=== PATIENT | female | born 1955 | race Caucasian/White ===

== ENCOUNTER 2020-01-18 09:59 | Outpatient (CLI) | payer MEDICARE, SELFPAY ==
--- NOTE | ~2020-01-18 | MM_ITS ---
EXAMINATION: MM screening [facility] BI w tyson HISTORY: Screening mammogram TECHNIQUE: Craniocaudal and mediolateral oblique 3-D tomosynthesis images were obtained and synthetic 2-D images were generated. CAD analysis was submitted and interpreted. COMPARISON: 11/15/2018, 10/04/2017, 07/14/2016 BREAST PARENCHYMAL COMPOSITION: There are scattered areas of fibroglandular density. FINDINGS: There is no evidence of suspicious mass, calcification, or architectural distortion to sugg est malignancy in either breast. There has been no suspicious interval change. IMPRESSION: 1. No mammographic evidence of malignancy. 2. Recommend routine screening mammography in one year. BI-RADS Category 1: Negative Reviewed, dictated and finalized at location A. S TENDER LONG GOODS
== END 2020-01-18 10:00 | disposition home or self-care (01) ==
LOC: CHSIMG 10:02
PROVIDERS: PCP Internal Medicine; Visit Provider Student in an Organized Health Care Education/Training Program
DX: Z12.31 Encounter for screening mammogram for malignant neoplasm of breast (principal)
CPT/HCPCS: 77063; 77067

== ENCOUNTER 2020-10-07 09:39 | Outpatient (CLI) | payer MEDICARE, SELFPAY ==
--- NOTE | ~2020-10-07 | MMUS_ITS ---
EXAMINATION: MM diagnostic nir LT w tyson, US breast LT limited HISTORY: Left lateral breast pain TECHNIQUE: Additional 3-D tomosynthesis images of the left breast were performed and synthetic 2-D im ages were generated. CAD analysis was submitted and interpreted. High resolution Limited left breast ultrasound was performed. COMPARISON: Comparison to multiple prior studies sequentially, with oldest reviewed study dated 05/23. BREAST PARENCHYMAL COMPOSITION: The breasts are heterogenously dense, which may obscure small masses. FINDINGS: MAMMOGRAPHIC FINDINGS: There are no new masses, calcifications or architectural distortion in the left breast to suggest mal ignancy. ULTRASOUND: Limited left breast ultrasound: At 5:00, 2 cm from the nipple, there is an oval hypoechoic mass measu ring 3.5 mm, likely a complicated cyst. At 6:00, 4 cm from the nipple, there is an oval hypoechoic ma ss with low level internal echoes measuring 3 mm, also likely complicated cysts. IMPRESSION: 1. Probable benign left breast masses. 2. Recommend 6 month follow-up left breast ultrasound BI-RADS category 3, probably benign findings. Reviewed, dictated and finalized at location A. IMPRESSION: 1. Probable benign left breast masses. 2. Recommend 6 month follow-up left breast ultrasound BI-RADS category 3, probably benign findings.
== END 2020-10-07 09:40 | disposition home or self-care (01) ==
LOC: CHSIMG 09:42
PROVIDERS: PCP Internal Medicine; Visit Provider Student in an Organized Health Care Education/Training Program
DX: N64.4 Mastodynia (principal)
CPT/HCPCS: 76642; 77061; 77065; G0279

== ENCOUNTER 2021-04-17 09:04 | Outpatient (CLI) | payer MEDICARE, SELFPAY ==
--- NOTE | ~2021-04-17 | MMUS_ITS ---
EXAMINATION: MM diagnostic nir BI w tyson, US breast LT limited HISTORY: Follow-up breast masses TECHNIQUE: Additional 3-D tomosynthesis images of the breasts were performed and synthetic 2-D images were generated. CAD analysis was submitted and interpreted. High resolution Limited left breast ultr asound was performed. COMPARISON: Comparison to multiple prior studies sequentially, with oldest reviewed study dated 07/24. BREAST PARENCHYMAL COMPOSITION: The breasts are heterogenously dense, which may obscure small masses FINDINGS: MAMMOGRAPHIC FINDINGS: Bilateral breast are stable. No new masses, calcifications or architectural distortion to suggest mal ignancy. ULTRASOUND: Limited left breast ultrasound: Stable oval hypoechoic 4 mm mass of the left breast at 5:00, 2 cm fro m the nipple with parallel orientation, no posterior features and no internal vascularity. Stable 4 m m hypoechoic mass at 6:00, 4 cm from the nipple with similar characteristics. IMPRESSION: 1. Stable likely benign left breast masses by ultrasound. 2. Recommend 6 month follow-up Limited left breast ultrasound BI-RADS category 3, probably benign findings. Reviewed, dictated and finalized at location A. ER HELPER IMPRESSION: 1. Stable likely benign left breast masses by ultrasound. 2. Recommend 6 month follow-up Limited left breast ultrasound BI-RADS category 3, probably benign findings.
--- NOTE | ~2021-04-17 | DEXA_ITS ---
Bone Density Report Name: ABDIAZIZ MURCIA Age: 65 Sex: Female Ethnicity: White Date of : 1955 Indication: postmenopausal; screening for osteoporosis; parental hip fracture; height loss; hysterectomy; Referring Provider: Isabel Mendes Study: Bone densitometry was performed. Exam Date: April 17, 2021 Accession number: [id number] Bone Density: Region BMD T-score Z-score Classification AP Spine(L1-L4) 0.816 -2.1 -0.2 Osteopenia Femoral Neck (Left) 0.686 -1.5 0.1 Osteopenia Total Hip (Left) 0.834 -0.9 0.4 Normal Femoral Neck (Right) 0.724 -1.1 0.5 Osteopenia Total Hip (Right) 0.843 -0.8 0.5 Normal Femoral Neck Mean 0.705 -1.3 0.3 Osteopenia Total Hip Mean 0.838 -0.8 0.5 Normal World Health Organization criteria for BMD impression classify patients as: Normal (T-score at or above -1.0), Osteopenia (T-score between -1.0 and -2.5), or Osteoporosis (T-score at or below -2.5). 10-year Fracture Risk(1): Major Osteoporotic Fracture 16% Hip Fracture 1.2% Reported Risk Factors: [place] (), Neck BMD=0.686, BMI=27.8, parental fracture (1) FRAX(R) Version 3.08. Fracture probability calculated for an untreated patient. Fracture probability may be lower if the patient has received treatment. Clinical Information Provided by Patient: Parent has had a hip fracture Has used the following medications: Vitamin D, Calcium Has the following medical conditions: Hysterectomy Patient maximum height was 65 Menopause Age: 55 No regular weight bearing exercise Does not regularly consume dairy products Onset of menses at age 13 Number of children 3 Impression: The patient has low bone mass, based on the Total Spine T-score. The patient has risk factors, including: parental hip fracture. Discussion: BONE DENSITY IS LOW AT ONE OR MORE SKELETAL SITES. This patient's lowest T-score is low at one or more skeletal sites. It meets the World Health Organization's (WHO) criteria for ?low bone mass? (T-score between -1.0 and -2.5). The patient's 10-year risk of fracture as calculated by FRAX is less than the threshold where pharmacological therapy is recommended by the National Osteoporosis Foundation (NOF). However, all treatment decisions require clinical judgment and consideration of individual patient factors, including patient preferences, comorbidities, previous drug use, risk factors not captured in the FRAX model (e.g., frailty, falls, vitamin D deficiency, increased bone turnover, interval significant decline in bone density) and possible under or overestimation of fracture risk by FRAX. The patient should follow a healthful lifestyle (good nutrition with adequate calcium and vitamin D, and appropriate weight-bearing exercise). Follow-Up: Consider repeating this study i
== END 2021-04-17 09:05 | disposition home or self-care (01) ==
LOC: CHSIMG 09:06
PROVIDERS: PCP Internal Medicine; Visit Provider Student in an Organized Health Care Education/Training Program
DX: Z78.0 Asymptomatic menopausal state (principal); R92.8 Other abnormal and inconclusive findings on diagnostic imaging of breast
CPT/HCPCS: 76642; 77062; 77066; 77080; G0279

== ENCOUNTER 2021-07-09 13:21 | Outpatient (CLI) | payer MEDICARE, SELFPAY ==
--- NOTE | ~2021-07-09 | US_ITS ---
EXAMINATION: US thyroid DATE: 07/09/2021 13:43 INDICATION: Goiter TECHNIQUE: Multiple ultrasound images of the thyroid were obtained. COMPARISON: None. FINDINGS: The right thyroid lobe measures 4.8 x 1.1 x 1.3 cm. The left thyroid lobe measures 4.6 x 1.2 x 1.8 c m. 2.5 x 1.9 x 1.3 cm wider than tall heterogeneously isoechoic solid nodule at the inferior right t hyroid (TI-RADS 3, mildly suspicious , FNA if >=2.5 cm, annual followup is >=1.5 cm). There is an add itional 5 mm solid hypoechoic nodule with smooth and ill-defined margins at the right side of the thy roid isthmus (TI-RADS 4, moderately suspicious , FNA if >=1.5 cm, annual followup is >=1 cm). Additio nal 10 mm TI RADS 3 wider than tall solid isoechoic nodule with smooth margins and very hypoechoic pe ripheral halo in the left thyroid lobe in the inferior left thyroid. 1.1 cm TI RADS 4 vitamin tall hy poechoic solid nodule with ill-defined margins at the inferior left thyroid. IMPRESSION: 1. Multinodular goiter. Recommend ultrasound-guided biopsy of the largest 2.5 cm TI RADS 3 nodule in the right thyroid. Reviewed, dictated and finalized at location A. IMPRESSION: 1. Multinodular goiter. Recommend ultrasound-guided biopsy of the largest 2.5 c m TI RADS 3 nodule in the right thyroid.
== END 2021-07-09 13:22 | disposition home or self-care (01) ==
LOC: CHSIMG 13:22
PROVIDERS: PCP Internal Medicine; Visit Provider Internal Medicine Endocrinology, Diabetes & Metabolism
DX: E04.9 Nontoxic goiter, unspecified (principal)
CPT/HCPCS: 76536

== ENCOUNTER 2021-08-04 13:07 | Outpatient (CLI) | payer MEDICARE, SELFPAY ==
--- NOTE | ~2021-08-04 | US_ITS ---
EXAMINATION: US FNA w image guidance DATE: 08/04/2021 14:26 INDICATION: Right thyroid nodule. TECHNIQUE: The procedure and its benefits and risks were discussed with the patient. Risks specifically discusse d included bleeding. The patient verbalized understanding of the risks and agreed to proceed. The nec k was prepped and draped in the usual sterile manner. 1% lidocaine was used for local anesthesia. 6 passes were made with a 25G needle into the lesion under ultrasound guidance. There were no immedia te complications. FINDINGS: Grayscale ultrasound images demonstrate needles advanced into a 2.5 cm nodule in inferior right thyro id lobe for biopsy. IMPRESSION: 1. Ultrasound-guided fine needle aspiration of a right thyroid nodule. Reviewed, dictated and finalized at location A.
== END 2021-08-04 13:08 | disposition home or self-care (01) ==
PROVIDERS: PCP Internal Medicine; Visit Provider Nurse Practitioner
DX: E04.1 Nontoxic single thyroid nodule (principal)
CPT/HCPCS: 10005; 88173; 88305

== ENCOUNTER 2021-10-22 14:30 | Outpatient (RCR) | payer MEDICARE, SELFPAY ==
[2021-08-28 09:20] VITALS: BMI 26.0
[2021-08-28 09:25] VITALS: BMI 26.0
== END 2021-11-11 09:53 | disposition home or self-care (01) ==
LOC: ANHDMC 14:30
PROVIDERS: PCP Internal Medicine; Visit Provider Internal Medicine Endocrinology, Diabetes & Metabolism
DX: E11.65 Type 2 diabetes mellitus with hyperglycemia (principal); Z71.89 Other specified counseling; Z71.3 Dietary counseling and surveillance
CPT/HCPCS: 97802; G0108; G0109

== ENCOUNTER 2021-10-23 08:53 | Outpatient (CLI) | payer MEDICARE, SELFPAY ==
--- NOTE | ~2021-10-23 | US_ITS ---
US breast LT limited 10/23/2021 09:31 Indication: Follow-up left breast masses Procedure: High-resolution Limited ultrasound of the left breast Comparison: Ultrasound dated 04/17/2021 Findings: At 6:00, 4 cm from the nipple, there is a 4 mm cyst. At 5:00, 2 cm from the nipple, there i s a 6 mm cyst. No suspicious masses to suggest malignancy. Impression: 1: Benign cysts of the left breast. No sonographic evidence for malignancy. Routine yearly screening mammogram and regular clinical breast examination are recommended. BI-RADS CATEGORY 2 - BENIGN FINDINGS Reviewed, dictated and finalized at location A. Impression: 1: Benign cysts of the left breast. No sonographic evidence for malignancy. Routine yearly screening mammogram and regular clinical breast examination are recommended. BI-RADS CATEGORY 2 - BENIGN FINDINGS
== END 2021-10-23 08:54 | disposition home or self-care (01) ==
LOC: CHSIMG 08:55
PROVIDERS: PCP Internal Medicine; Visit Provider Student in an Organized Health Care Education/Training Program
DX: R92.8 Other abnormal and inconclusive findings on diagnostic imaging of breast (principal)
CPT/HCPCS: 76642

== ENCOUNTER 2022-01-15 14:25 | Outpatient (RCR) | payer MEDICARE, SELFPAY | END 2022-01-15 19:05 | disposition home or self-care (01) | LOC: ANHDMC 14:25 | PROVIDERS: PCP Internal Medicine; Visit Provider Internal Medicine Endocrinology, Diabetes & Metabolism | DX: E11.65 Type 2 diabetes mellitus with hyperglycemia (principal); Z71.89 Other specified counseling | CPT/HCPCS: G0109 ==

== ENCOUNTER 2022-03-23 07:22 | Outpatient (CLI) | payer MEDICARE, SELFPAY ==
--- NOTE | ~2022-03-23 | US_ITS ---
EXAMINATION: US right upper quadrant DATE: 03/23/2022 08:38 INDICATION: Jaundice. Abnormal liver function tests. TECHNIQUE: Multiple grayscale and Doppler ultrasound images of the abdomen were obtained. COMPARISON: Abdomen ultrasound 02/12/2017 FINDINGS: The visualized portions of the head and body of the pancreas are normal. There is diffuse h epatic steatosis. No liver surface nodularity. There is normal flow in main portal vein. The gallblad trupti is absent. The common duct is normal and measures 5 mm. IMPRESSION: 1. Diffuse hepatic steatosis. Reviewed, dictated and finalized at location A. R RULER
== END 2022-03-23 07:23 | disposition home or self-care (01) ==
LOC: CHSIMG 07:23
PROVIDERS: PCP Internal Medicine; Visit Provider Internal Medicine Endocrinology, Diabetes & Metabolism
DX: K76.0 Fatty (change of) liver, not elsewhere classified (principal)
CPT/HCPCS: 76705

== ENCOUNTER 2022-04-21 13:34 | Outpatient (CLI) | payer MEDICARE, SELFPAY ==
--- NOTE | ~2022-04-21 | CT_ITS ---
CT Abdomen with contrast. History: Hyperbilirubinemia. Spiral CT of the abdomen was performed prior to and following the administration of intravenous contr ast. 100 cc of Omnipaque 350 was administered intravenously without complication. Dose reduction tech nique was used on this scan by utilizing automated exposure control and iterative reconstruction tech nique. The dose-length product (DLP) was 305.10 mGy-cm. Findings: Scans through the lung bases are unremarkable. The liver, spleen, pancreas, adrenals and kidneys are within normal limits. Cholecystectomy clips are present. No evidence of aortic aneurysm. No lymphadenopathy is seen. Visualized bowel is unremarkable. No ascites. Impression: Status post cholecystectomy, otherwise unremarkable exam. Reviewed, dictated and finalized at location M. TECHNOLOGIST Impression: Status post cholecystectomy, otherwise unremarkable exam.
[2022-04-21 13:57] LABS: Estimated Glomerular Filt Rate > 60
== END 2022-04-21 13:35 | disposition home or self-care (01) ==
PROVIDERS: PCP Internal Medicine; Visit Provider Nurse Practitioner Family
DX: E80.6 Other disorders of bilirubin metabolism (principal); Z80.0 Family history of malignant neoplasm of digestive organs
CPT/HCPCS: 74160; Q9967

== ENCOUNTER 2022-11-16 07:54 | Outpatient (CLI) | payer MEDICARE, SELFPAY ==
--- NOTE | ~2022-11-16 | MM_ITS ---
EXAMINATION: MM screening nir BI w tyson HISTORY: Screening TECHNIQUE: Craniocaudal and mediolateral oblique 3-D tomosynthesis images were obtained and synthetic 2-D images were generated. CAD analysis was submitted and interpreted. COMPARISON: No prior mammogram is available for comparison at this institution. BREAST PARENCHYMAL COMPOSITION: Breast composed of scattered areas of fibroglandular density FINDINGS: There are developing asymmetries in the upper central aspect of the left breast which are o bscured by overlying fibroglandular tissue. The right breast is stable without evidence for malignanc y. IMPRESSION: 1. Developing left breast asymmetries, upper central aspect of the left breast. 2. Additional spot compression and mediolateral views with possible follow-up breast ultrasound recom mended. BI-RADS Category 0: Incomplete: Needs additional imaging evaluation. Reviewed, dictated and finalized at location A. IMPRESSION: 1. Developing left breast asymmetries, upper central aspect of the left breast. 2. Additional spot compression and mediolateral views with possible follow-up b reast ultrasound recommended. BI-RADS Category 0: Incomplete: Needs additional imaging evaluation.
== END 2022-11-16 07:55 | disposition home or self-care (01) ==
LOC: CHSIMG 07:57
PROVIDERS: PCP Internal Medicine; Visit Provider Registered Nurse
DX: Z12.31 Encounter for screening mammogram for malignant neoplasm of breast (principal); N64.89 Other specified disorders of breast
CPT/HCPCS: 77063; 77067

== ENCOUNTER 2022-11-20 08:51 | Outpatient (CLI) | payer MEDICARE, SELFPAY ==
--- NOTE | ~2022-11-20 | MMUS_ITS ---
EXAMINATION: MM diagnostic nir LT w tyson, US breast LT complete HISTORY: Follow-up left breast asymmetries TECHNIQUE: Additional 3-D tomosynthesis images of the left breast were performed and synthetic 2-D im ages were generated. CAD analysis was submitted and interpreted. High resolution complete left left b reast ultrasound was performed. COMPARISON: Comparison to multiple prior studies sequentially, with oldest reviewed study dated 07/2017. BREAST PARENCHYMAL COMPOSITION: Breast composed of scattered areas of fibroglandular density FINDINGS: MAMMOGRAPHIC FINDINGS: Left breast asymmetries are less apparent with spot compression views without significant interval ch elsie compared with prior examinations allowing for differences of technique. There are benign calcifi cations. ULTRASOUND: Complete US of all 4 quadrants of the left breast and retroareolar region was reviewed. At 12:00, 7 cm from the nipple there is a small simple cyst. At 5:00, near the nipple there is a 4.5 mm cyst with internal septation. No suspicious masses to suggest malignancy. IMPRESSION: 1. Stable left mammogram and ultrasound. No evidence for malignancy. 2. Routine yearly screening mammogram and regular clinical breast examination are recommended. BI-RADS Category 2: Benign finding(s). Reviewed, dictated and finalized at location A. IMPRESSION: 1. Stable left mammogram and ultrasound. No evidence for malignancy. 2. Routine yearly screening mammogram and regular clinical breast examination a re recommended. BI-RADS Category 2: Benign finding(s).
== END 2022-11-20 08:52 | disposition home or self-care (01) ==
LOC: CHSIMG 08:53
PROVIDERS: PCP Internal Medicine; Visit Provider Registered Nurse
DX: R92.8 Other abnormal and inconclusive findings on diagnostic imaging of breast (principal)
CPT/HCPCS: 76641; 77061; 77065; G0279

== ENCOUNTER 2023-09-21 15:05 | Outpatient (CLI) | payer MEDICARE, SELFPAY ==
--- NOTE | ~2023-09-21 | XR_ITS ---
XR hip RT min 2V Ordering provider: John Quiroga MD History: . low back radiating into RT hip X 2 months . Comparison: None. FINDINGS: BONES: No acute fracture or dislocation. Small bony fragment seen near to the greater trochanter whic h may be old fracture or soft tissue calcification. HIP JOINT SPACES: Normal. PUBIC SYMPHYSIS: Normal. SOFT TISSUES: Normal. IMPRESSION: No definite acute osseous abnormality pelvis and right hip. Reviewed, dictated and finalized at location A.
--- NOTE | ~2023-09-21 | XR_ITS ---
3 VIEWS LUMBAR SPINE Ordering provider: John Quiroga MD History: . low back radiating into RT hip X 2 months . Comparison: None. FINDINGS: VERTEBRAL BODIES:Levoscoliosis. Degenerative changes of the spine. No visible fracture or subluxatio n. DISK SPACES: Narrowing of the disc L1-L2, L3-L4 and L4-5. Facet joint disease at the level of L3-4, L 4-5 and L5-S1. SOFT TISSUES: Vascular calcifications. IMPRESSION: No acute osseous abnormality lumbar spine. Reviewed, dictated and finalized at location A.
== END 2023-09-21 15:06 | disposition home or self-care (01) ==
LOC: CHSIMG 15:07
PROVIDERS: PCP Internal Medicine; Visit Provider Internal Medicine
DX: M25.551 Pain in right hip (principal); M54.50 Low back pain, unspecified
CPT/HCPCS: 72100; 73502

== ENCOUNTER 2023-11-09 07:56 | Outpatient (CLI) | payer MEDICARE, SELFPAY ==
--- NOTE | ~2023-11-09 | US_ITS ---
Limited Abdominal Sonogram: Real-time sonographic imaging of the right upper quadrant was performed. Clinical History: Hyperbilirubinemia Findings: The liver appears echogenic, with no evidence of mass lesion or bile duct dilatation. Main portal vein demonstrates normal direction of flow. The gallbladder is absent, compatible prior diandra cystectomy.. The common bile duct measures 3 mm. The visualized pancreas, aorta, and IVC are unremar kable. Impression: Diffuse fatty infiltration of the liver. Reviewed, dictated and finalized at location M. Impression: Diffuse fatty infiltration of the liver.
== END 2023-11-09 07:57 | disposition home or self-care (01) ==
LOC: CHSIMG 07:57
PROVIDERS: PCP Internal Medicine; Visit Provider Internal Medicine Gastroenterology
DX: K76.0 Fatty (change of) liver, not elsewhere classified (principal); E80.6 Other disorders of bilirubin metabolism
CPT/HCPCS: 76705

== ENCOUNTER 2023-12-28 07:53 | Outpatient (CLI) | payer MEDICARE, SELFPAY ==
--- NOTE | ~2023-12-28 | MM_ITS ---
EXAMINATION: MM screening [facility] BI w tyson HISTORY: Screening mammogram TECHNIQUE: Craniocaudal and mediolateral oblique 3-D tomosynthesis images were obtained and synthetic 2-D images were generated. CAD analysis was submitted and interpreted. COMPARISON: 11/16/2022, 04/17/2021, 10/07/2020, 01/18/2020 BREAST PARENCHYMAL COMPOSITION:Not Dense. There are scattered areas of fibroglandular density. FINDINGS: No suspicious mass, calcification, or architectural distortion are identified in either talia ast to suggest malignancy. There has been no suspicious interval change. IMPRESSION: No mammographic evidence of malignancy. Recommend routine screening mammography in one year. BI-RADS Category 1: Negative Reviewed, dictated and finalized at location .
== END 2023-12-28 07:54 | disposition home or self-care (01) ==
LOC: CHSIMG 07:55
PROVIDERS: PCP Internal Medicine; Visit Provider Nurse Practitioner Obstetrics & Gynecology
DX: Z12.31 Encounter for screening mammogram for malignant neoplasm of breast (principal)
CPT/HCPCS: 77063; 77067

== ENCOUNTER 2024-07-06 12:21 | Outpatient (CLI) | payer MEDICARE, SELFPAY ==
--- NOTE | ~2024-07-06 | DEXA_ITS ---
Bone Density Report Name: ABDIAZIZ MURCIA Age: 68 Sex: Female Ethnicity: White Date of : 1955 Indication: osteopenia; parental hip fracture; height loss; hysterectomy; Referring Provider: ERROL CHAMBERS Study: Bone densitometry was performed. Exam Date: July 06, 2024 Accession number: [id number] Bone Density: Region BMD T-score Z-score Classification AP Spine(L1-L4) 0.831 -2.0 0.1 Osteopenia Femoral Neck (Left) 0.672 -1.6 0.2 Osteopenia Total Hip (Left) 0.805 -1.1 0.4 Osteopenia Femoral Neck (Right) 0.687 -1.5 0.3 Osteopenia Total Hip (Right) 0.779 -1.3 0.1 Osteopenia Femoral Neck Mean 0.679 -1.5 0.2 Osteopenia Total Hip Mean 0.792 -1.2 0.3 Osteopenia World Health Organization criteria for BMD impression classify patients as: Normal (T-score at or above -1.0), Osteopenia (T-score between -1.0 and -2.5), or Osteoporosis (T-score at or below -2.5). 10-year Fracture Risk(1): Major Osteoporotic Fracture 16% Hip Fracture 2.8% Reported Risk Factors: [place] (), Neck BMD=0.672, BMI=27.8, parental fracture (1) FRAX(R) Version 3.08. Fracture probability calculated for an untreated patient. Fracture probability may be lower if the patient has received treatment. Previous Exams: Region Exam Age BMD T-score BMD Change BMD Change Date g/cm2 vs Baseline vs Previous AP Spine (L1-L4) 07/06/2024 68 0.831 -2.0 0.015 (1.8%) 0.015 (1.8%) 04/17/2021 65 0.816 -2.1 Total Hip(Left) 07/06/2024 68 0.805 -1.1 -0.029 (-3.5%) -0.029 (-3.5%) 04/17/2021 65 0.834 -0.9 Total Hip(Right) 07/06/2024 68 0.779 -1.3 -0.063 (-7.5%) -0.063 (-7.5%) 04/17/2021 65 0.843 -0.8 *Denotes significance at 95% confidence level, LSC for AP Spine = 0.022 g/cm2, LSC for Total Hip = 0.027 g/cm2 Clinical Information Provided by Patient: Parent has had a hip fracture Has used the following medications: Vitamin D, Calcium Has the following medical conditions: Hysterectomy Patient maximum height was 65 Menopause Age: 55 No regular weight bearing exercise Does not regularly consume dairy products Onset of menses at age 13 Number of children 3 Impression: The patient has low bone mass, based on the Total Spine T-score. The patient has risk factors, including: parental hip fracture. The BMD for the Total Hip(Left) decreased, changing by -3.5% since the last DXA exam. The BMD for the Total Hip(Right) decreased, changing by -7.5% since the last DXA exam. Discussion: BONE DENSITY IS LOW AT ONE OR MORE SKELETAL SITES. This patient's lowest T-score is low at one or more skeletal sites. It meets the World Health Organization's (WHO) criteria for ?low bone mass? (T-score between -1.0 and -2.5). The patient's 10-year risk of fracture as calculated by FRAX is less than the threshold where pharmacological therapy is recommended by the National Osteoporosis Foundation (NOF). However, all treatment decisions require clinical judgment and consideration of individual patient factors, including patient preferences, comorbidities, previous drug use, risk factors not captured in the FRAX model (e.g., frailty, falls, vitamin D deficiency, increased bone turnover, interval significant decline in bone density) and possible under or overestimation of fracture risk by FRAX. The patient should follow a healthful lifestyle (good nutrition with adequate calcium and vitamin D, and appropriate weight-bearing exercise). Follow-Up: Consider repeating this study in 2 years to reassess this patient's status, or sooner if there is some new clinical indication. Reported by: SELENE on 07/06/2024 12:36:00 PM. Reviewed, dictated and finalized at location A.
--- OUTSIDE RECORDS SUMMARY | 2024-07-06 12:25 | XMS_ITS | Clinical Summary ---
Author Organization [facility] Address [address] [place] [id number] Care Team Providers Care Filter Tender Jelly Name Role Phone Unavailable Primary Care Provider Unavailabl e Social History Tobacco Use Types Packs/Day Years Used Date Smoking Tobacco: Never Assessed Comments Unknown Sex and Gender Information Value Date Recorded Sex Assigned at Not on file Legal Sex Female 8:09 PM CDT Gender Identity Not on file Sexual Orientation Not on file Plan of Treatment Health Maintenance Due Date Last Done Comments Colorectal Cancer Screening Colonoscopy (10 Years) 1955 Hepatitis C 1972 DTaP, Tdap and Td Vaccines ( 1 - Tdap) 1973 Mammogram Screening 1994 Pneumococcal Vaccine: 50+ Ye ars (1 of 1 - PCV) 2004 Zoster Vaccines (1 of 2) 2004 Dexa Scan (General) 10/26/2019 COVID-19 Vaccine ( - 2023-2 5 season) 2023 RSV Immunization or 60+ Years (1 - 1-dose 75+ series) 2029 Meningococcal B Vaccine Aged Out No l onger eligible based on patient's age to complete this topic Meningococcal Vaccine Aged Out No luis fernando abby eligible based on patient's age to complete this topic RSV Immunizations Under 20 Months Aged Out No longer eligible based on patient's age to complete this topic
--- OUTSIDE RECORDS SUMMARY | 2024-07-06 12:25 | XMS_ITS | Referral Summary ---
Author Organization [facility] Address [address] [place] [address] Care Team Providers Care Braille Duplicating Machine Operator Name Role Phone John Quiroga MD Primary Care Provider [phone] Allergies Active Allergy Reactions Criticality Noted Date Comments Codeine Nausea only Low Medications atorvastatin (LIPITOR) 10 mg tablet daily 09/27/2015 Active hydroCHLOROthia zide (MICROZIDE) 12.5 mg capsule daily 09/27/2015 Act joyce losartan (COZAAR) 50 mg tablet daily 09/27/2015 Active metFORMIN (GLUCOPHAGE) 500 mg tablet 2 times daily 09/27/2015 Active Jardiance 10 mg tablet Take 10 mg by mouth every morning 12/04/2019 Active glipiZIDE XL (GLUCOTROL XL) 5 mg 24 hr tablet TAKE 1 TABLET DAILY AT SUPPER 11/30/2019 Active Active Problems Problem Noted Date Diagnosed Date Biliary calculus 12/06/2015 Gastroesophageal reflux disease 09/27/2015 Difficulty in swallowing 09/27/2015 Hiatal hernia 09/27/2015 Diarrhea 09/27/2015 Social History Tobacco Use Types Packs/Day Years Used Date Smoking Tobacco: Never Alcohol Use Standard Drinks/Week Comments No 0 (1 standard drink = 0.6 oz pur e alcohol) Personal Safety Answer Date Recorded Getting School Help Needed Not on file 05/15 Comments Unknown Sex and Gender Information Value Date Recorded Sex Assigned at Not on file Legal Sex Female 3:33 AM 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 SURGEON Gender Identity Not on file Sexual Orientation Not on file Last Filed Vital Signs Vital Sign Reading Time Taken Comments Blood Pressure 116/76 02/08/2020 7:50 AM 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 SURGEON Pulse 83 02/08/2020 7:50 AM 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 SURGEON Temperature 36.1 C (97 F) 02/08/2020 7:27 AM 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 SURGEON Respiratory Rate 20 02/08/2020 7:50 AM 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 SURGEON Oxygen Saturation 94% 02/08/2020 7:50 AM 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 SURGEON Inhaled Oxygen Concentration - - Weight 72.2 kg (159 lb 3.2 oz) 01/16/2020 10:46 AM 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 SURGEON Height 165.1 cm (5' 5 ) 01/16/2020 10:46 AM 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 SURGEON Body Mass Index 26.49 01/16/2020 10:46 AM 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 SURGEON Plan of Treatment Not on file Insurance AET MEDICARE [facility] MEDIC[facility] Address: [facility] [id number] [place] [id number] Advance Directives For more information, please contact: [phone] * Full Code (Latest Code Status on File) Date Activated Date Inactivated Comments 02/08/2020 6:22 AM 02/08/2020 12:23 PM Care Teams Braille Duplicating Machine Operator Relationship Specialty Start Date End Date John Quiroga MD PCP - General 01/01/17
--- OUTSIDE RECORDS SUMMARY | 2024-07-06 12:25 | XMS_ITS | Data Portability ---
Author Organization [facility], Main Office Address [address] [place] [address] Assessment No assessment recorded. Plan of Treatment Reminders Order Date Submit Date Provider Last Modified By Organization Details Last Modified Time Details Appointments None recorded. Lab None recorded. Referral None recorded. Procedures None recorded. Surgeries None recorded. Imaging None recorded. Medication Orders Bydureon BCise 2 mg/0.85 mL subcutaneou s auto-inject or 2022 023 [id number], [address], [place], [id number], 3 11:55:10 metformin ER 500 mg tablet,exte nded release 24 hr 2022 023 [id number], [address], [place], [id number], 3 11:55:41 glipizide ER 5 mg tablet, extended release 24 hr 2022 023 [email or web address]44952, [address], [place], [id number], 3 11:55:40 Farxiga 5 mg tablet 2022 023 [email or web address]57907, [address], [place], [id number], 11:56:36 Patient TargetsNo targets recorded. Patient InstructionsNo instructions recorded. Reason for Referral None Reported. Results Created Date Observation Date Name Description Value Unit Range Abnormal Flag Note LastModifiedBy Organization Detail LastModifiedTime 07/11/19 22 07/11/2021 HEMOG LOBIN A1C hemoglobin A1C 8.4 %_of_ total _HGB <5.7 high For someo ne witho ut known diabe kings, a hemog lobin A1c value of 6.5% or great er indic ates that they may have diabe kings and this shoul d be confi rmed with a follo w-up test. For someo ne with known diabe kings, a value <7% indic ates that their diabe kings is well contr olled and a value great er than or equal to 7% indic ates subop timal contr ol. A1c targe ts shoul d be indiv idual ized based on durat ion of diabe kings, age, comor bid condi tions , and other consi derat ions. Curre ntly, no conse nsus exist s samantha ortega use of hemog lobin A1c for diagn osis of diabe kings for child edie. Not Available [address], [address], 07/11/2021 11:40:36 07/11/19 22 07/11/2021 HEMOG LOBIN A1C copy(ies) sent to: [facility] [address] [place] [address] Not Available [address], [address], 07/11/2021 11:40:36 07/11/19 22 07/11/2021 TSH TSH 1.60 mIU/L 0.40-4 .50 normal Not Available [facility] [address], [address], 07/11/2021 11:40:36 07/11/19 22 07/11/2021 TSH copy(ies) sent to: [facility] [address] [place] [address] Not Available [facility] [address] [place], [address], 07/11/2021 11:40:36 07/11/19 22 07/11/2021 T4, FREE T4, free 1.5 NG/dL 0.8-1. 8 normal Not Available [address], [address], 07/11/2021 11:40:35 07/11/19 22 07/11/2021 T4, FREE copy(ies) sent to: [facility] [address] [place] [address] Not Available [address], [address], 07/11/2021 11:40:35 07/11/19 22 07/11/2021 C-PEP TIDE C-peptide 1.85 NG/mL 0.80-3 .85 normal Not Available [address], [address], 07/11/2021 11:40:35 07/11/19 22 07/11/2021 C-PEP TIDE copy(ies) sent to: [facility] [address] [place] [address] Not Available [address], [address], 07/11/2021 11:40:35 07/11/19 22 07/11/2021 ALBUM IN, RANDO M URINE W/CRE ATINI NE creatinine, random urine 57 mg/dL 20-275 normal Not Available [address], [address], 07/11/2021 11:40:35 07/11/19 22 07/11/2021 ALBUM IN, RANDO M URINE W/CRE ATINI NE albumin, urine 0.9 mg/dL see note: normal Refer ence Range : Refer ence Range Not estab lishe d Not Available [address], [address], 07/11/2021 11:40:35 07/11/19 22 07/11/2021 ALBUM IN, RANDO M URINE W/CRE ATINI NE albumin/crea tinine ratio, random urine 16 mcg/m g_cre at <30 normal The ADA defin es abnor malit ies in album in excre tion as follo ws: Album inuri a Categ ory Resul t (mcg/ mg creat inine ) Karon l to Mildl y incre ased <30 Moder ately incre ased 30-29 9 Sever sofía incre ased > OR = 300 The ADA recom mends that at least two of three speci mens colle cted withi n a 3-6 month perio d be abnor mal befor e consi shelley g a patie nt to be withi n a diagn ostic categ ory. Not Available [facility] [address] [address] [place], [address], 07/11/2021 11:40:35 07/11/19 22 07/11/2021 ALBUM IN, RANDO M URINE W/CRE ATINI NE copy(ies) sent to: [facility] [address] [place] [address] Not Available [facility] [place] [address] [place], [address], 07/11/2021 11:40:35 07/11/19 22 07/11/2021 COMPR EHENS ELIEL METAB OLIC PANEL glucose 177 mg/dL 65-99 high Fasti ng refer ence inter oly For someo ne witho ut known diabe kings, a gluco se value >125 mg/dL indic ates that they may have diabe kings and this shoul d be confi rmed with a follo w-up test. Not Available [facility] [address] [place], [address], 07/11/2021 11:40:34 07/11/19 22 07/11/2021 COMPR EHENS ELIEL METAB OLIC PANEL urea nitrogen (BUN) 19 mg/dL 7-25 normal Not Available [address] [address] [place], [address], 07/11/2021 11:40:34 07/11/19 22 07/11/2021 COMPR EHENS ELIEL METAB OLIC PANEL creatinine 0.74 mg/dL 0.50-0 .99 normal For patie nts >49 years of age, the refer ence limit for Creat inine is appro ximat sofía 13% highe r for peopl e ident ified as Afric an-Am marlyn n. Not Available [address] [address] [place], [address], 07/11/2021 11:40:34 07/11/19 22 07/11/2021 COMPR EHENS ELIEL METAB OLIC PANEL eGFR non-afr. czech 84 mL/mi n/1.7 3m2 > or = 60 normal Not Available [address] [address] [place], [address], 07/11/2021 11:40:34 07/11/19 22 07/11/2021 COMPR EHENS ELIEL METAB OLIC PANEL eGFR 98 mL/mi n/1.7 3m2 > or = 60 normal Not Available [address] [address] [place], [address], 07/11/2021 11:40:34 07/11/19 22 07/11/2021 COMPR EHENS ELIEL METAB OLIC PANEL BUN/creatini ne ratio not applic able (calc ) 6-22 Not Available [facility] [address] [address] [place], [address], 07/11/2021 11:40:34 07/11/19 22 07/11/2021 COMPR EHENS ELIEL METAB OLIC PANEL sodium 140 mmol/ L 135-14 6 normal Not Available [address] [address] [place], [address], 07/11/2021 11:40:34 07/11/19 22 07/11/2021 COMPR EHENS ELIEL METAB OLIC PANEL potassium 3.9 mmol/ L 3.5-5. 3 normal Not Available [address], [address], 07/11/2021 11:40:34 07/11/19 22 07/11/2021 COMPR EHENS ELIEL METAB OLIC PANEL chloride 102 mmol/ L 98-110 normal Not Available [address], [address], 07/11/2021 11:40:34 07/11/19 22 07/11/2021 COMPR EHENS ELIEL METAB OLIC PANEL carbon dioxide 23 mmol/ L 20-32 normal Not Available [address], [address], 07/11/2021 11:40:34 07/11/19 22 07/11/2021 COMPR EHENS ELIEL METAB OLIC PANEL calcium 9.5 mg/dL 8.6-10 .4 normal Not Available [address], [address], 07/11/2021 11:40:34 07/11/19 22 07/11/2021 COMPR EHENS ELIEL METAB OLIC PANEL protein, total 6.8 g/dL 6.1-8. 1 normal Not Available [address], [address], 07/11/2021 11:40:34 07/11/19 22 07/11/2021 COMPR EHENS ELIEL METAB OLIC PANEL albumin 4.4 g/dL 3.6-5. 1 normal Not Available [address], [address], 07/11/2021 11:40:34 07/11/19 22 07/11/2021 COMPR EHENS ELIEL METAB OLIC PANEL globulin 2.4 g/dL_ (calc ) 1.9-3. 7 normal Not Available [address] [address] [place], [address], 07/11/2021 11:40:34 07/11/19 22 07/11/2021 COMPR EHENS ELIEL METAB OLIC PANEL albumin/glob ulin ratio 1.8 (calc ) 1.0-2. 5 normal Not Available [address], [address], 07/11/2021 11:40:34 07/11/19 22 07/11/2021 COMPR EHENS ELIEL METAB OLIC PANEL bilirubin, total 1.5 mg/dL 0.2-1. 2 high Not Available [address], [address], 07/11/2021 11:40:34 07/11/19 22 07/11/2021 COMPR EHENS ELIEL METAB OLIC PANEL alkaline phosphatase 77 U/L 37-153 normal Not Available [address], [address], 07/11/2021 11:40:34 07/11/19 22 07/11/2021 COMPR EHENS ELIEL METAB OLIC PANEL AST 13 U/L 10-35 normal Not Available [address], [address], 07/11/2021 11:40:34 07/11/19 22 07/11/2021 COMPR EHENS ELIEL METAB OLIC PANEL ALT 15 U/L 6-29 normal Not Available [address], [address], 07/11/2021 11:40:34 07/11/19 22 07/11/2021 COMPR EHENS ELIEL METAB OLIC PANEL copy(ies) sent to: [facility] [address] [place] [address] Not Available [address], [address], 07/11/2021 11:40:34 07/11/19 22 07/11/2021 LIPID PANEL , STAND LAWRENCE cholesterol, total 142 mg/dL <200 normal Not Available [address], [address], 07/11/2021 11:40:34 07/11/19 22 07/11/2021 LIPID PANEL , STAND LAWRENCE HDL cholesterol 57 mg/dL > or = 50 normal Not Available [address] [address] [place], [address], 07/11/2021 11:40:34 07/11/19 22 07/11/2021 LIPID PANEL , STAND LAWRENCE triglyceride s 159 mg/dL <150 high Not Available [address], [address], 07/11/2021 11:40:34 07/11/19 22 07/11/2021 LIPID PANEL , STAND LAWRENCE LDL-choleste rol 61 mg/dL _(keeley c) normal Refer ence range : <100 Juarez able range <100 mg/dL for prima ry preve ntion ; <70 mg/dL for patie nts with CHD or diabe tic patie nts with > or = 2 CHD risk facto rs. LDL-C is now calcu lated using the Myrtle n-Hop kins altau rohan n, which is a valid ated novel andreio ailyn mancia accur acy than the Fried marcus equat ion in the estim ation of LDL-C . Myrtle ellsworth SS et al. REMA. 2013; 310(1 9): 2061- 2068 (http ://ed ucati on.Qu Zay orozcoOcean Butterfliess. com/f aq/FA Q164) Not Available [address] [address] [place], [address], 07/11/2021 11:40:34 07/11/19 22 07/11/2021 LIPID PANEL , STAND LAWRENCE chol/HDLC ratio 2.5 (calc ) <5.0 normal Not Available [facility] [address] [address] [place], [address], 07/11/2021 11:40:34 07/11/19 22 07/11/2021 LIPID PANEL , STAND LAWRENCE non HDL cholesterol 85 mg/dL _(keeley c) <130 normal For patie nts with diabe kings plus 1 major ASCVD risk facto r, treat ing to a non-H DL-C goal of <100 mg/dL (LDL- C of <70 mg/dL ) is consi dered a thera nima crawford optio n. Not Available [facility] [address] [address] [place], [address], 07/11/2021 11:40:34 07/11/19 22 07/11/2021 LIPID PANEL , STAND LAWRENCE copy(ies) sent to: [facility] [address] [place] [address] Not Available [facility] [address] [address] [address] , [place], [address], 07/11/2021 11:40:34 11/01/19 22 11/01/2021 HEMOG LOBIN A1C hemoglobin A1C 7.2 %_of_ total _HGB <5.7 high For someo ne witho ut known diabe kings, a hemog lobin A1c value of 6.5% or great er indic ates that they may have diabe kings and this shoul d be confi rmed with a follo w-up test. For someo ne with known diabe kings, a value <7% indic ates that their diabe kings is well contr olled and a value great er than or equal to 7% indic ates subop timal contr ol. A1c targe ts shoul d be indiv idual ized based on durat ion of diabe kings, age, comor bid condi tions , and other consi derat ions. Curre ntly, no conse nsus exist s regyi ortega use of hemog lobin A1c for diagn osis of diabe kings for child edie. Not Available [facility] [address], [address], 11/01/2021 17:20:17 11/01/19 22 11/01/2021 TSH TSH 2.12 mIU/L 0.40-4 .50 normal Not Available [address], [address], 11/01/2021 17:20:16 11/01/19 22 11/01/2021 T4, FREE T4, free 1.4 NG/dL 0.8-1. 8 normal Not Available [address], [address], 11/01/2021 17:20:16 11/01/19 22 11/01/2021 ALBUM IN, RANDO M URINE W/CRE ATINI NE creatinine, random urine 80 mg/dL 20-275 normal Not Available [address], [address], 11/01/2021 17:20:16 11/01/19 22 11/01/2021 ALBUM IN, RANDO M URINE W/CRE ATINI NE albumin, urine 0.6 mg/dL see note: normal Refer ence Range : Refer ence Range Not estab lishe d Not Available [address], [address], 11/01/2021 17:20:16 11/01/19 22 11/01/2021 ALBUM IN, RANDO M URINE W/CRE ATINI NE albumin/crea tinine ratio, random urine 8 mcg/m g_cre at <30 normal The ADA defin es abnor malit ies in album in excre tion as follo ws: Album inuri a Categ ory Resul t (mcg/ mg creat inine ) Karon l to Mildl y incre ased <30 Moder ately incre ased 30-29 9 Sever sofía incre ased > OR = 300 The ADA recom mends that at least two of three speci mens colle cted withi n a 3-6 month perio d be abnor mal befor e consi shelley g a patie nt to be withi n a diagn ostic categ ory. Not Available [address], [address], 11/01/2021 17:20:16 11/01/19 22 11/01/2021 COMPR EHENS ELIEL METAB OLIC PANEL glucose 171 mg/dL 65-99 high Fasti ng refer ence inter oly For someo ne witho ut known diabe kings, a gluco se value >125 mg/dL indic ates that they may have diabe kings and this shoul d be confi rmed with a follo w-up test. Not Available [address], [address], 11/01/2021 17:20:15 11/01/19 22 11/01/2021 COMPR EHENS ELIEL METAB OLIC PANEL urea nitrogen (BUN) 18 mg/dL 7-25 normal Not Available [address], [address], 11/01/2021 17:20:15 11/01/19 22 11/01/2021 COMPR EHENS ELIEL METAB OLIC PANEL creatinine 0.76 mg/dL 0.50-1 .05 normal Not Available [address], [address], 11/01/2021 17:20:15 11/01/19 22 11/01/2021 COMPR EHENS ELIEL METAB OLIC PANEL eGFR 86 mL/mi n/1.7 3m2 > or = 60 normal The eGFR is based on the CKD-E PI 2020 equat ion. To calcu late the new eGFR from a previ ous Creat inine or Cysta shandra C bailey t, go to https ://nhi scanlon.myrna wick/ely leger s/ kdoqi /gfr% 5Fcal culat or Not Available [facility] [address] [address] [place], [address], 11/01/2021 17:20:15 11/01/19 22 11/01/2021 COMPR EHENS ELIEL METAB OLIC PANEL BUN/creatini ne ratio not applic able (calc ) 6-22 Not Available [address], [address], 11/01/2021 17:20:15 11/01/19 22 11/01/2021 COMPR EHENS ELIEL METAB OLIC PANEL sodium 140 mmol/ L 135-14 6 normal Not Available [address], [address], 11/01/2021 17:20:15 11/01/19 22 11/01/2021 COMPR EHENS ELIEL METAB OLIC PANEL potassium 4.1 mmol/ L 3.5-5. 3 normal Not Available [address], [address], 11/01/2021 17:20:15 11/01/19 22 11/01/2021 COMPR EHENS ELIEL METAB OLIC PANEL chloride 101 mmol/ L 98-110 normal Not Available [address], [address], 11/01/2021 17:20:15 11/01/19 22 11/01/2021 COMPR EHENS ELIEL METAB OLIC PANEL carbon dioxide 28 mmol/ L 20-32 normal Not Available [address], [address], 11/01/2021 17:20:15 11/01/19 22 11/01/2021 COMPR EHENS ELIEL METAB OLIC PANEL calcium 9.6 mg/dL 8.6-10 .4 normal Not Available [address], [address], 11/01/2021 17:20:15 11/01/19 22 11/01/2021 COMPR EHENS ELIEL METAB OLIC PANEL protein, total 6.8 g/dL 6.1-8. 1 normal Not Available [address] [address] [place], [address], 11/01/2021 17:20:15 11/01/19 22 11/01/2021 COMPR EHENS ELIEL METAB OLIC PANEL albumin 4.5 g/dL 3.6-5. 1 normal Not Available [address], [address], 11/01/2021 17:20:15 11/01/19 22 11/01/2021 COMPR EHENS ELIEL METAB OLIC PANEL globulin 2.3 g/dL_ (calc ) 1.9-3. 7 normal Not Available [address], [address], 11/01/2021 17:20:15 11/01/19 22 11/01/2021 COMPR EHENS ELIEL METAB OLIC PANEL albumin/glob ulin ratio 2.0 (calc ) 1.0-2. 5 normal Not Available [address] [address] [place], [address], 11/01/2021 17:20:15 11/01/19 22 11/01/2021 COMPR EHENS ELIEL METAB OLIC PANEL bilirubin, total 1.6 mg/dL 0.2-1. 2 high Not Available [address], [address], 11/01/2021 17:20:15 11/01/19 22 11/01/2021 COMPR EHENS ELIEL METAB OLIC PANEL alkaline phosphatase 81 U/L 37-153 normal Not Available [facility] [employer] [address] [address] [place], [address], 11/01/2021 17:20:15 11/01/19 22 11/01/2021 COMPR EHENS ELIEL METAB OLIC PANEL AST 16 U/L 10-35 normal Not Available [address] [address] [place], [address], 11/01/2021 17:20:15 11/01/19 22 11/01/2021 COMPR EHENS ELIEL METAB OLIC PANEL ALT 17 U/L 6-29 normal Not Available [address], [address], 11/01/2021 17:20:15 11/01/19 22 11/01/2021 LIPID PANEL , STAND LAWRENCE cholesterol, total 140 mg/dL <200 normal Not Available [address], [address], 11/01/2021 17:20:15 11/01/19 22 11/01/2021 LIPID PANEL , STAND [place]WR[place] HDL cholesterol 61 mg/dL > or = 50 normal Not Available [address], [address], 11/01/2021 17:20:15 11/01/19 22 11/01/2021 LIPID PANEL , STAND LAWRENCE triglyceride s 148 mg/dL <150 normal Not Available [address], [address], 11/01/2021 17:20:15 11/01/19 22 11/01/2021 LIPID PANEL , [place]AND [place] LDL-choleste rol 56 mg/dL _(keeley c) normal Refer ence range : <100 Juarez able range <100 mg/dL for prima ry preve ntion ; <70 mg/dL for patie nts with CHD or diabe tic patie nts with > or = 2 CHD risk facto rs. LDL-C is now calcu lated using the Myrtle n-Hop kins calcu rohan n, which is a valid ated novel zaida escobar than the Fried marcus equat ion in the estim ation of LDL-C . Myrtle ellsworth SS et al. REMA. 2013; 310(1 9): 2061- 2068 (http ://ed ucati on.Qu estDi agnos tics. com/f aq/FA Q164) Not Available [address] [place], [address], 11/01/2021 17:20:15 11/01/19 22 11/01/2021 LIPID PANEL , STAND LAWRENCE chol/HDLC ratio 2.3 (calc ) <5.0 normal Not Available [facility] [address] [address], [place], [address], 11/01/2021 17:20:15 11/01/19 22 11/01/2021 LIPID PANEL , STAND [place]WR[place] non HDL cholesterol 79 mg/dL _(keeley c) <130 normal For patie nts with diabe kings plus 1 major ASCVD risk facto r, treat ing to a non-H DL-C goal of <100 mg/dL (LDL- C of <70 mg/dL ) is consi carole crawford optio n. Not Available [facility] [address] [address] [address], [place], [address], 11/01/2021 17:20:15 02/17/20 22 02/17/2022 HEMOG LOBIN A1C hemoglobin A1C 8.2 %_of_ total _HGB <5.7 high For someo ne witho ut known diabe kings, a hemog lobin A1c value of 6.5% or great er indic ates that they may have diabe kings and this shoul d be confi rmed with a follo w-up test. For someo ne with known diabe kings, a value <7% indic ates that their diabe kings is well contr olled and a value great er than or equal to 7% indic ates subop timal contr ol. A1c targe ts shoul d be indiv idual ized based on durat ion of diabe kings, age, comor bid condi tions , and other consi derat ions. Curre ntly, no conse nsus exist s regar ding use of hemog lobin A1c for diagn osis of diabe kings for child edie. Not Available [facility] [address] [address], [place], [address], 02/17/2022 16:22:46 02/17/20 22 02/17/2022 HEMOG LOBIN A1C copy(ies) sent to: [facility] [address] [place] [address] Not Available [address], [address], 02/17/2022 16:22:46 02/17/20 22 02/17/2022 TSH TSH 1.50 mIU/L 0.40-4 .50 normal Not Available [address], [address], 02/17/2022 16:22:46 02/17/20 22 02/17/2022 TSH copy(ies) sent to: [facility] [address] [place] [address] Not Available [address], [address], 02/17/2022 16:22:46 02/17/20 22 02/17/2022 T4, FREE T4, free 1.4 NG/dL 0.8-1. 8 normal Not Available [address], [address], 02/17/2022 16:22:45 02/17/20 22 02/17/2022 T4, FREE copy(ies) sent to: [facility] [address] [place] [address] Not Available [address], [address], 02/17/2022 16:22:45 02/17/20 22 02/17/2022 ALBUM IN, RANDO M URINE W/CRE ATINI NE creatinine, random urine 84 mg/dL 20-275 normal Not Available [address], [address], 02/17/2022 16:22:45 02/17/20 22 02/17/2022 ALBUM IN, RANDO M URINE W/CRE ATINI NE albumin, urine 0.8 mg/dL see note: normal Refer ence Range : Refer ence Range Not estab lishe d Not Available [address] [place], [address], 02/17/2022 16:22:45 02/17/20 22 02/17/2022 ALBUM IN, RANDO M URINE W/CRE ATINI NE albumin/crea tinine ratio, random urine 10 mcg/m g_cre at <30 normal The ADA defin es abnor malit ies in album in excre tion as follo ws: Album inuri a Categ ory Resul t (mcg/ mg creat inine ) Karon l to Mildl y incre ased <30 Moder ately incre ased 30-29 9 Sever sofía incre ased > OR = 300 The ADA recom mends that at least two of three speci mens colle cted withi n a 3-6 month perio d be abnor mal befor e consi shelley g a patie nt to be withi n a diagn ostic categ ory. Not Available [address] [place], [address], 02/17/2022 16:22:45 02/17/20 22 02/17/2022 ALBUM IN, RANDO M URINE W/CRE ATINI NE copy(ies) sent to: [facility] [address] [place] [address] Not Available [address] [address] [place], [address], 02/17/2022 16:22:45 02/17/20 22 02/17/2022 COMPR EHENS ELIEL METAB OLIC PANEL ALT 14 U/L 6-29 normal Not Available [facility] [address] [address] [place], [address], 02/17/2022 16:22:44 02/17/20 22 02/17/2022 COMPR EHENS ELIEL METAB OLIC PANEL copy(ies) sent to: [facility] [address] [place] [address] Not Available [address], [address], 02/17/2022 16:22:44 02/17/20 22 02/17/2022 COMPR EHENS ELIEL METAB OLIC PANEL glucose 171 mg/dL 65-99 high Fasti ng refer ence inter oly For someo ne witho ut known diabe kings, a gluco se value >125 mg/dL indic ates that they may have diabe kings and this shoul d be confi rmed with a follo w-up test. Not Available [address], [address], 02/17/2022 16:22:44 02/17/20 22 02/17/2022 COMPR EHENS ELIEL METAB OLIC PANEL urea nitrogen (BUN) 20 mg/dL 7-25 normal Not Available [address], [address], 02/17/2022 16:22:44 02/17/20 22 02/17/2022 COMPR EHENS ELIEL METAB OLIC PANEL creatinine 0.67 mg/dL 0.50-1 .05 normal Not Available [address], [address], 02/17/2022 16:22:44 02/17/20 22 02/17/2022 COMPR EHENS ELIEL METAB OLIC PANEL eGFR 96 mL/mi n/1.7 3m2 > or = 60 normal The eGFR is based on the CKD-E PI 2020 equat ion. To calcu late the new eGFR from a previ ous Creat inine or Cysta shandra C bailey t, go to https ://nhi scanlon.myrna wick/ely leger s/ kdoqi /gfr% 5Fcal culat or Not Available [address], [address], 02/17/2022 16:22:44 02/17/20 22 02/17/2022 COMPR EHENS ELIEL METAB OLIC PANEL BUN/creatini ne ratio not applic able (calc ) 6-22 Not Available [address], [address], 02/17/2022 16:22:44 02/17/20 22 02/17/2022 COMPR EHENS ELIEL METAB OLIC PANEL sodium 137 mmol/ L 135-14 6 normal Not Available [address], [address], 02/17/2022 16:22:44 02/17/20 22 02/17/2022 COMPR EHENS ELIEL METAB OLIC PANEL potassium 3.9 mmol/ L 3.5-5. 3 normal Not Available [address], [address], 02/17/2022 16:22:44 02/17/20 22 02/17/2022 COMPR EHENS ELIEL METAB OLIC PANEL chloride 98 mmol/ L 98-110 normal Not Available [address], [address], 02/17/2022 16:22:44 02/17/20 22 02/17/2022 COMPR EHENS ELI[facility] METAB OLIC PANEL carbon dioxide 28 mmol/ L 20-32 normal Not Available [address], [address], 02/17/2022 16:22:44 02/17/20 22 02/17/2022 COMPR EHENS ELIEL METAB OLIC PANEL calcium 9.9 mg/dL 8.6-10 .4 normal Not Available [address], [address], 02/17/2022 16:22:44 02/17/20 22 02/17/2022 COMPR EHENS ELIEL METAB OLIC PANEL protein, total 7.1 g/dL 6.1-8. 1 normal Not Available [address], [address], 02/17/2022 16:22:44 02/17/20 22 02/17/2022 COMPR EHENS ELIEL METAB OLIC PANEL albumin 4.6 g/dL 3.6-5. 1 normal Not Available [address], [address], 02/17/2022 16:22:44 02/17/20 22 02/17/2022 COMPR EHENS ELIEL METAB OLIC PANEL globulin 2.5 g/dL_ (calc ) 1.9-3. 7 normal Not Available [address], [address], 02/17/2022 16:22:44 02/17/20 22 02/17/2022 COMPR EHENS ELIEL METAB OLIC PANEL albumin/glob ulin ratio 1.8 (calc ) 1.0-2. 5 normal Not Available [address], [address], 02/17/2022 16:22:44 02/17/20 22 02/17/2022 COMPR EHENS ELIEL METAB OLIC PANEL bilirubin, total 2.1 mg/dL 0.2-1. 2 high Not Available [address], [address], 02/17/2022 16:22:44 02/17/20 22 02/17/2022 COMPR EHENS ELIEL METAB OLIC PANEL alkaline phosphatase 102 U/L 37-153 normal Not Available [facility] [employer] [address], [address], 02/17/2022 16:22:44 02/17/20 22 02/17/2022 COMPR EHENS ELIEL METAB OLIC PANEL AST 15 U/L 10-35 normal Not Available [address], [address], 02/17/2022 16:22:44 02/17/20 22 02/17/2022 LIPID PANEL , [place] cholesterol, total 143 mg/dL <200 normal Not Available [address] [place] [address] [place], [address], 02/17/2022 16:22:43 02/17/20 22 02/17/2022 LIPID PANEL , [place] [place] HDL cholesterol 62 mg/dL > or = 50 normal Not Available [address] [address] [facility] [place], [address], 02/17/2022 16:22:43 02/17/20 22 02/17/2022 LIPID PANEL , STAND [place]WR[place] triglyceride s 187 mg/dL <150 high Not Available [address], [address], 02/17/2022 16:22:43 02/17/20 22 02/17/2022 LIPID PANEL , [place]AND [place] LDL-choleste rol 55 mg/dL _(keeley c) normal Refer ence range : <100 Juarez able range <100 mg/dL for prima ry preve ntion ; <70 mg/dL for patie nts with CHD or diabe tic patie nts with > or = 2 CHD risk facto rs. LDL-C is now calcu lated using the Myrtle n-Hop kins altau rohan n, which is a valid ated novel andreio ailyn celeste acy than the Fried marcus equat ion in the estim ation of LDL-C . Myrtle ellsworth SS et al. REMA. 2013; 310(1 9): 2061- 2068 (http ://ed ucati on.Qu Zay arroyo Nippos. com/f aq/FA Q164) Not Available [facility] [address] [address] [place], [address], 02/17/2022 16:22:43 02/17/20 22 02/17/2022 LIPID PANEL , STAND [place]WR[place] chol/HDLC ratio 2.3 (calc ) <5.0 normal Not Available [address] [address] [place], [address], 02/17/2022 16:22:43 02/17/20 22 02/17/2022 LIPID PANEL , STAND [place] non HDL cholesterol 81 mg/dL _(keeley c) <130 normal For patie nts with diabe kings plus 1 major ASCVD risk facto r, treat ing to a non-H DL-C goal of <100 mg/dL (LDL- C of <70 mg/dL ) is consi dered a thera peuti c optio n. Not Available [address] [place], [address], 02/17/2022 16:22:43 02/17/20 22 02/17/2022 LIPID PANEL , STAND [place]WRENCE copy(ies) sent to: [facility] [address] [place] [address] Not Available [address] [address] [place], [address], 02/17/2022 16:22:43 03/19/19 23 03/20/2022 HEPAT IC FUNCT ION PANEL protein, total 6.9 g/dL 6.1-8. 1 normal Not Available [address] [address] [place], [address], 03/20/2022 06:59:13 03/19/19 23 03/20/2022 HEPAT IC FUNCT ION PANEL albumin 4.4 g/dL 3.6-5. 1 normal Not Available [facility] [address] [address] [place], [address], 03/20/2022 06:59:13 03/19/19 23 03/20/2022 HEPAT IC FUNCT ION PANEL globulin 2.5 g/dL_ (calc ) 1.9-3. 7 normal Not Available [facility] [address] [address] [place], [address], 03/20/2022 06:59:13 03/19/19 23 03/20/2022 HEPAT IC FUNCT ION PANEL albumin/glob ulin ratio 1.8 (calc ) 1.0-2. 5 normal Not Available [address], [address], 03/20/2022 06:59:13 03/19/19 23 03/20/2022 HEPAT IC FUNCT ION PANEL bilirubin, total 1.8 mg/dL 0.2-1. 2 high Not Available [address] [address] [place], [address], 03/20/2022 06:59:13 03/19/19 23 03/20/2022 HEPAT IC FUNCT ION PANEL bilirubin, direct 0.3 mg/dL < or = 0.2 high Not Available [address], [address], 03/20/2022 06:59:13 03/19/19 23 03/20/2022 HEPAT IC FUNCT ION PANEL bilirubin, indirect 1.5 mg/dL _(keeley c) 0.2-1. 2 high Not Available [address], [address], 03/20/2022 06:59:13 03/19/19 23 03/20/2022 HEPAT IC FUNCT ION PANEL alkaline phosphatase 97 U/L 37-153 normal Not Available [address] [address] [place], [address], 03/20/2022 06:59:13 03/19/19 23 03/20/2022 HEPAT IC FUNCT ION PANEL AST 15 U/L 10-35 normal Not Available [address], [address], 03/20/2022 06:59:13 03/19/19 23 03/20/2022 HEPAT IC FUNCT ION PANEL ALT 16 U/L 6-29 normal Not Available [address] [place], [address], 03/20/2022 06:59:13 09/04/19 23 09/04/2022 LIPID PANEL , STAND [place]WRENCE cholesterol, total 121 mg/dL <200 normal Not Available [address] [address] [place], [address], 09/04/2022 13:20:40 09/04/19 23 09/04/2022 LIPID PANEL , STAND LAWRENCE HDL cholesterol 60 mg/dL > or = 50 normal Not Available [facility] [address] [address] [place], [address], 09/04/2022 13:20:40 09/04/19 23 09/04/2022 LIPID PANEL , STAND LAWRENCE triglyceride s 139 mg/dL <150 normal Not Available [address] [address] [place], [address], 09/04/2022 13:20:40 09/04/19 23 09/04/2022 LIPID PANEL , [place] LDL-choleste rol 39 mg/dL _(keeley c) normal Refer ence range : <100 Juarez able range <100 mg/dL for prima ry preve ntion ; <70 mg/dL for patie nts with CHD or diabe tic patie nts with > or = 2 CHD risk facto rs. LDL-C is now calcu lated using the Myrtle n-Hop kins deann madrigal n, which is a valid ated novel andreio d toño long r accur acy than the Fried marcus equat ion in the estim ation of LDL-C . Myrtle ellsworth SS et al. REMA. 2013; 310(1 9): 2061- 2068 (http ://ed ucati on.Qu Zay crabtrees. com/f aq/FA Q164) Not Available [facility] [address] [address] [address]ratio [address], [place], [address], 09/04/2022 13:20:40 09/04/19 23 09/04/2022 LIPID PANEL , STAND LAWRENCE chol/HDLC ratio 2.0 (calc ) <5.0 normal Not Available [address] [address] [place], [address], 09/04/2022 13:20:40 09/04/19 23 09/04/2022 LIPID PANEL , STAND [place]WR[place] non HDL cholesterol 61 mg/dL _(keeley c) <130 normal For patie nts with diabe kings plus 1 major ASCVD risk facto r, treat ing to a non-H DL-C goal of <100 mg/dL (LDL- C of <70 mg/dL ) is consi rayd a lilly penaomy crawford optio n. Not Available [address] [address] [place], [address], 09/04/2022 13:20:40 09/04/19 23 09/04/2022 LIPID PANEL , STAND LAWRENCE copy(ies) sent to: [facility] [address] [place] [address] Not Available [address] [address] Administratio , [place], [address], 09/04/2022 13:20:40 09/04/19 23 09/04/2022 ALBUM IN, RANDO M URINE W/CRE ATINI NE creatinine, random urine 125 mg/dL 20-275 normal Not Available [address] [address] [place], [address], 09/04/2022 13:20:41 09/04/19 23 09/04/2022 ALBUM IN, RANDO M URINE W/CRE ATINI NE albumin, urine 1.2 mg/dL see note: normal Refer ence Range : Refer ence Range Not estab lishe d Not Available [address] [address] [place], [address], 09/04/2022 13:20:41 09/04/19 23 09/04/2022 ALBUM IN, RANDO M URINE W/CRE ATINI NE albumin/crea tinine ratio, random urine 10 mcg/m g_cre at <30 normal The ADA defin es abnor malit ies in album in excre tion as follo ws: Album inuri a Categ ory Resul t (mcg/ mg creat inine ) Karon l to Mildl y incre ased <30 Moder ately incre ased 30-29 9 Sever sofía incre ased > OR = 300 The ADA recom mends that at least two of three speci mens colle cted withi n a 3-6 month perio d be abnor mal befor e consi shelley g a patie nt to be withi n a diagn ostic categ ory. Not Available [address], [address], 09/04/2022 13:20:41 09/04/19 23 09/04/2022 ALBUM IN, RANDO M URINE W/CRE ATINI NE copy(ies) sent to: [facility] [address] [place] [address] Not Available [address], [address], 09/04/2022 13:20:41 09/04/19 23 09/04/2022 FOLAT E, SERUM folate, serum 20.2 NG/mL normal Refer ence Range Low: <3.4 Borde rline : 3.4-5 .4 Karon l: >5.4 Not Available [address], [address], 09/04/2022 13:20:42 09/04/19 23 09/04/2022 FOLAT E, SERUM copy(ies) sent to: [facility] [address] [place] [address] Not Available [address], [address], 09/04/2022 13:20:42 09/04/19 23 09/04/2022 T4, FREE T4, free 1.3 NG/dL 0.8-1. 8 normal Not Available [address], [address], 09/04/2022 13:20:42 09/04/19 23 09/04/2022 T4, FREE copy(ies) sent to: [facility] [address] [place] [address] Not Available [address], [address], 09/04/2022 13:20:42 09/04/19 23 09/04/2022 TSH TSH 1.29 mIU/L 0.40-4 .50 normal Not Available [address], [address], 09/04/2022 13:20:43 09/04/19 23 09/04/2022 TSH copy(ies) sent to: [facility] [address] [place] [address] Not Available [address], [address], 09/04/2022 13:20:43 09/04/19 23 09/04/2022 VITAM IN B12 vitamin B12 403 pg/mL 200-11 00 normal Not Available [address], [address], 09/04/2022 13:20:43 09/04/19 23 09/04/2022 VITAM IN B12 copy(ies) sent to: [facility] [address] [place] [address] Not Available [address], [address], 09/04/2022 13:20:43 09/04/19 23 09/04/2022 HEMOG LOBIN A1C hemoglobin A1C 6.6 %_of_ total _HGB <5.7 high For someo ne witho ut known diabe kings, a hemog lobin A1c value of 6.5% or great er indic ates that they may have diabe kings and this shoul d be confi rmed with a follo w-up test. For someo ne with known diabe kings, a value <7% indic ates that their diabe kings is well contr olled and a value great er than or equal to 7% indic ates subop timal contr ol. A1c targe ts shoul d be indiv idual ized based on durat ion of diabe kings, age, comor bid condi tions , and other consi derat ions. Curre ntly, no conse nsus exist s samantha ortega use of hemog lobin A1c for diagn osis of diabe kings for child edie. Not Available [facility] [address] [place], [address], 09/04/2022 13:20:44 09/04/19 23 09/04/2022 HEMOG LOBIN A1C copy(ies) sent to: [facility] [address] [place] [address] Not Available [facility] [address] [place], [address], 09/04/2022 13:20:44 07/11/19 22 07/09/2021 US, thyro id No observ ation record ed. [id number] [facility]) [address] [facility], [place], [address], 04/29/2022 15:44:17 08/05/19 22 08/04/2021 fine needl e aspir ation , ultra sound guide d, thyro id (PROC ) No observ ation record ed. MIGRATION. [address], [place], [address], 04/29/2022 15:44:17 08/19/19 22 08/04/2021 fine needl e aspir ation , ultra sound guide d, thyro id (PROC ) No observ ation record ed. [id number] [facility] [address], [place], [address], 04/29/2022 15:44:17 03/23/19 23 03/23/2022 US, liver No observ ation record ed. [id number] [facility] [address] [facility], [place], [address], 04/29/2022 15:44:17 Result Notes None recorded. Problems Name Problem SNOMED Code Status Onset Date Resolution Date Notes Provider Name and Address Organization Details Recorded Time Plantar fascial fibromatosis 46908547 Active Not Available [facility] 3 15:42:06 Thyroid nodule 855262601 Active 2021 Not Available [facility] 3 15:42:06 Dyslipidemia 807033602 Active 2021 Not Available [facility] 3 15:42:06 Goiter 3923247 Active 2021 Not Available [facility] 3 15:42:06 Uncontrolled type 2 diabetes mellitus 355423155 Active 2021 Not Available [facility] 3 15:42:06 Fatigue 89399821 Active 2021 Not Available [facility] 3 15:42:06 Pain in limb 47125158 Active Not Available [facility] 3 15:42:06 Well controlled type 2 diabetes mellitus 406483260 Active 2022 Cherry Montano MD [address] [place] [address], [address] , [facility] [employer] 3 11:54:50 Problem Notes None recorded. Procedures Surgical History Date Name Laterality Status Provider Name and Address Organization Details Recorded Time partial fundoplication completed No t Available [facility] 04/29/2022 15:41:05 Cholecystectomy completed Not Available [facility] 04/29/2022 15:41:05 Hysterectomy completed Not Available [facility] 04/29/2022 15:41:05 excision of lymph node completed No t Available [facility] 04/29/2022 15:41:05 hernia repair completed Not Available [facility] 04/29/2022 15:41:05 dinitrochlorobenzene contact sensitivity test completed Not Available [facility] 04/29/2022 15:41:05 Imaging Results Imaging Date Name Status LastModified by Organiz ation Details LastModified Time 03/23/2022 US, liver completed [id number] [facility] [address] [place], [address], 04/29/2022 15:44:17 07/09/2021 US, thyroid completed [id number] 0026 [facility]) [address], [place], [address], 04/29/2022 15:44:17 08/04/2021 fine needle aspiration, ultrasound guided, thyroid (PROC) completed [id number] [facility] [address], [place], [address], 04/29/2022 15:44:17 08/04/2021 fine needle aspiration, ultrasound guided, thyroid (PROC) completed [id number] [facility] [address], [place], [address], 04/29/2022 15:44:17 Procedure Notes None recorded. Medical Equipment None Reported. Allergies Allergen ID Allergen Name Allergen Category Reaction Reaction Severity Criticality Documentation Date Start Date Code Code System Note Provider Name and Address Organization Details Recorded Time 81453 codeine medicatio n Not available Not available Not available 04/29/2022 2670 RxNorm Not Available [facility] 15:44:11 Medications Name Sig Start Date Stop Date Status Note LastModified by Organization Details LastModified Time losartan 50 mg tablet TAKE 1 TABLET BY MOUTH DAILY active Not Available Not Available No t Available amoxicillin 500 mg capsule TAKE 2 CAPSULES BY MOUTH NOW, THEN 1 CAPSULE EVERY 8 HOURS UNTIL GONE 09/09 completed Not Available Not Available Not Available clindamycin HCl 300 mg capsule TAKE 1 CAPSULE BY MOUTH FOUR TIMES DAILY UNTIL GONE 09/09 completed Not Available Not Available Not Available atorvastati n 10 mg tablet TAKE 1 TABLET BY MOUTH DAILY active Not Available Not Available No t Available glipizide ER 5 mg tablet, extended release 24 hr TAKE 1 TABLET BY MOUTH DAILY AT SUPPER active Not Available Not Available No t Available penicillin V potassium 500 mg tablet TAKE 1 TABLET BY MOUTH FOUR TIMES DAILY 09/09 completed Not Available Not Available Not Available ciprofloxac in 250 mg tablet TAKE 1 TABLET BY MOUTH EVERY 12 HOURS 09/24 completed Not Available Not Available Not Available sulfamethox azole 800 mg-trimetho prim 160 mg tablet TAKE 1 TABLET BY MOUTH EVERY 12 HOURS 09/24 completed Not Available Not Available Not Available tramadol 50 mg tablet TAKE 1 TABLET BY MOUTH EVERY 4 TO 6 HOURS NEEDED FOR PAIN 09/09 completed Not Available Not Available Not Available prednisolon e acetate 1 % eye drops,suspe nsion SHAKE LIQUID AND INSTILL 1 DROP IN BOTH EYES FOUR TIMES DAILY FOR 14 DAYS 09/24 completed Not Available Not Available Not Available clotrimazol e-betametha sone 1 %-0.05 % topical cream APPLY TOPICALLY TO THE AFFECTED AREA TWICE DAILY FOR 2 WEEKS active Not Available Not Available No t Available hydrochloro thiazide 12.5 mg capsule TAKE 1 CAPSULE BY MOUTH DAILY active Not Available Not Available No t Available cyanocobala min (vit B-12) 1,[address] 1 tablet every day by sublingua l route in the morning for 90 days. 09/24 completed Not Available Not Available Not Available metformin ER 500 mg tablet,exte nded release 24 hr TAKE 2 TABLETS BY MOUTH TWICE DAILY active Not Available Not Available No t Available glipizide 5 mg tablet active Not Available Not Available No t Available neomycin 3.5 mg/g-polymy dee B 10,000 unit/g-dexa meth 0.1 % eye oint APPLY TO BOTH EYES FOUR TIMES DAILY FOR ONE WEEK THEN TWICE DAILY FOR ONE WEEK 09/24 completed Not Available Not Available Not Available Restasis 0.05 % eye drops in a dropperette INSTILL 1 DROP IN BOTH EYES TWICE DAILY active Not Available Not Available No t Available metformin ER 500 mg 24 hr tablet,exte nded release (gastric retention) active Not Available Not Available N ot Available Tobradex ST 0.3 %-0.05 % eye drops,suspe nsion INSTILL 1 DROP THREE TIMES DAILY INTO THE LEFT EYE 09/24 completed Not Available Not Available Not Available OneTouch Verio test strips USE TO TEST BLOOD SUGAR ONCE DAILY active Not Available Not Available No t Available Farxiga 10 mg tablet TAKE 1 TABLET BY MOUTH EVERY DAY IN THE MORNING 09/24 completed Not Available Not Available Not Available Farxiga 5 mg tablet TAKE 1 TABLET BY MOUTH EVERY DAY IN THE MORNING active Not Available Not Available No t Available Jardiance 10 mg tablet TAKE 1 TABLET BY MOUTH EVERY MORNING 07/07 completed Not Available Not Available Not Available Jardiance 25 mg tablet take once daily 09/09 completed Not Available Not Available Not Available Gloria BCise 2 mg/0.85 mL subcutaneou s auto-inject or INJECT 2 MG UNDER THE SKIN ONCE WEEKLY AT DINNER active Not Available Not Available No t Available Vitals Date Recorded Body mass index (BMI) Body height Oxygen saturation Oxygen saturation in Arterial blood by Pulse oximetry Heart rate Body temperature Body weight Systolic blood pressure Diastolic blood pressure Provider Name and Address Organization Details Last Updated DateTime 2 26.6 kg/m2 163.83 cm 97 % 97 % 97 /min 97.7 [degF] 23803.8 g 110 mm[Hg] 85 mm[Hg] Not Available [facility] 3 15:41:10 Date Recorded Body mass index (BMI) Body height Oxygen saturation Oxygen saturation in Arterial blood by Pulse oximetry Heart rate Body temperature Body weight Systolic blood pressure Diastolic blood pressure Provider Name and Address Organization Details Last Updated DateTime 2 26 kg/m2 163.83 cm 96 % 96 % 92 /min 97.7 [degF] 06647.2 2 g 115 mm[Hg] 75 mm[Hg] Not Available [facility] 3 15:41:11 Date Recorded Body mass index (BMI) Body height Oxygen saturation Oxygen saturation in Arterial blood by Pulse oximetry Heart rate Body temperature Body weight Systolic blood pressure Diastolic blood pressure Provider Name and Address Organization Details Last Updated DateTime 2 26 kg/m2 163.83 cm 96 % 96 % 89 /min 97.7 [degF] 17741.2 2 g 130 mm[Hg] 80 mm[Hg] Not Available [facility] 3 15:41:11 Date Recorded Body mass index (BMI) Body height Oxygen saturation Oxygen saturation in Arterial blood by Pulse oximetry Heart rate Body temperature Body weight Systolic blood pressure Diastolic blood pressure Provider Name and Address Organization Details Last Updated DateTime 3 26.4 kg/m2 163.83 cm 96 % 96 % 100 /min 97.6 [degF] 28654.4 1 g 123 mm[Hg] 83 mm[Hg] Not Available [facility] 3 15:41:11 Date Recorded Body height Body mass index (BMI) Body weight Heart rate Body temperature Systolic blood pressure Diastolic blood pressure Provider Name and Address Organization Details Last Updated DateTime 3 163.83 cm 25.5 kg/m2 49108.4 5 g 91 /min 97.9 [degF] 131 mm[Hg] 86 mm[Hg] GABBI Hernandez CA [place] Tr[place] [employer] [facility] 3 11:39:28 Social History Question Answer Notes LastModified by Organizat ion Details LastModified Time Tobacco Smoking Status Never Smoker Not Available [facility] 04/29/2022 15:40:57 What Is Your Level Of Alcohol Consumption? None [id number] Information not available 04/29/2022 What Is Your Level Of Caffeine Consumption? Occasional [id number] Information not available 04/29/2022 Sex: Female Functional Status None recorded. Mental Status None recorded. Family History Relationship Description Onset Age of this Age Resolved Age Notes LastModified by Organization Details LastModified Time Father Thyroidectom y [id number] Not available 04/29/2022 15:41:05 Father Hypertensive disorder [id number] Not available 04/29/2022 15:41:06 Father Family history of stroke [id number] Not available 04/29/2022 15:41:06 Mother Thyroidectom y [id number].101 [id number] Not available 04/29/2022 15:41:06 Mother Prediabetes [id number].03 [id number] Not available 04/29/2022 15:41:06 Sister Thyroidectom y 3 sister s MIGRATION.238 [id number] Not available 04/29/2022 15:41:06 Sister Family history of malignant neoplasm [id number].[id number] Not available 04/29/2022 15:41:06 Sister Family history of malignant neoplasm [id number].108 [id number] Not available 04/29/2022 15:41:06 Notes:Mother & Father had by pass surgery Medical History Condition Response EYE PROBLEMS GI PROBLEMS Y GERD/NAUSEA Y DIZZINESS Y SKIN PROBLEMS Y DIABETES, TYPE Y HYPERTENSION Y HIGH CHOLESTEROL / HYPERLIPIDEMIA Y Gynecological HistoryNo gynecological history recorded. Obstetrics History GPAL:G 0 P 0 0 0 0 Past Encounters Encounter ID Performer Location Encounter Start Date Encounter Closed Date Diagnosis/Indication Diagnosis SNOMED-CT Code Diagnosis ICD10 Code Diagnosis Note [id number] Cherry Montano MD [facility] [address] [place] [address] 07/07/2021 00:00:00 07/07/2021 12:23:39 [id number] [facility] [address] [place], [place] [address] 09/09/2021 00:00:00 09/09/2021 15:04:43 [id number] [facility] [address] [place] [address] 11/18/2021 00:00:00 11/18/2021 11:33:45 [id number] Cherry Montano MD [facility] [address] [place] [address] 03/12/2022 00:00:00 03/12/2022 13:38:33 [id number] Cherry Montano MD [facility] [address] [place] [address] 09/24/2022 11:29:06 09/24/2022 12:02:39 Well controlled type 2 diabetes mellitus 386805159 E11.9 a1c of 6.6% in range- continue on bydureon as she is tolerating well and has some weight loss. Continue metformin for insulin sensitizat ion and drop farxiga down to 5 mg daily as she has some vaginal dryness/it chiness on high dose and aware to stop if this doesn't improve on low dose. 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 Recommende d she incorporat e natural insulin flat finisher s such as pears, apples, cinnamon, marisol and sweet potatoes to help mobilize her endogenous insulin. Recommende d up to 150 minutes of moderate level activity/e xercise weekly. Dyslipidemia 915348594 E 78.5 Continue on statin therapy. Spent up to 25 minutes preparing to see the patient (eg, review of tests), obtaining and/or reviewing separately obtained history, performing a medically appropriat e examinatio n and evaluation , counseling and educating the patient, ordering medication s, tests, along with documentin g clinical informatio n in the electronic health record, independen tly interpreti ng results and communicat ing results to the patient. Patient can be followed by PCP - she/he is aware of my resignatio n and last day of December 11. If needed his/her PCP can refer patient to another endocrinol ogist in the area. All questions /concerns answered and refills necessary at visit today. Health Concerns Section Related Observation LastModified by Organization Detai ls LastModified Time None Recorded Concern Status LastModified by Organization Details LastModified Time None Recorded Advance Directives Directive None Recorded Payers Encounter Date Sequence Insurance Name Policy Number Policy Handy Covered Member ID Handy Member ID Guarantor Name 09/24/2022 1 [facility] (MEDICARE REPLACEMENT/A DVANTAGE - PPO) [id number] Heather Houston [id number] Bala Houston Notes Date Note Type Note Provider Name and Address Organization Details Recorded Time 09/24/2022 text/html 66 yo female com es in for follow up in management of well controlled type 2 DM (A1C of 6.6% down from 7% range), B12 def and dyslipidemia. last seen in March at that time we discussed dropping farxiga to low dose and trialing on bydureon 2 mg once weekly. We continued metformin and glipizide. we started B12 under tongue supplementation. She has lost 6 pounds and sugars are better. Her sugars are running around 120 mg/dL down to 90 mg/dL fasting. She hasn't been below 100 mg/dL in a long time. She likes to snack at night. She didn't think she did anything different. Last week she was all under 120 mg/dL and 140 mg/dl this morning. liver u/s from 03/23:diffuse fatty liver She does see a oncology social worker next month. She will be seeing Dr Wilcox at [place]. labs from 09/20:a1c 6.6%TSH of 1.29 uIU/mlFT4 of 1.3 ng/dLB12 403 pg/mLfolate normalmicroalbumin 10 ug/mg121/139/60/39 Cherry Montano MD [address] [facility], [facility] [address], [place], [address], [facility] [employer] [facility] 09/24/2022 14:05:12 OBGyn Episode No OBEpisode recorded.
--- OUTSIDE RECORDS SUMMARY | 2024-07-06 12:25 | XMS_ITS | Clinical Summary ---
Author Organization [facility] Address [address] [place] [address] Care Team Providers Care Hard Tile Setter Apprentice Name Role Phone John Quiroga MD Primary Care Provider [phone] Allergies Active Allergy Reactions Criticality Noted Date [...] swallowing 09/27/2015 Hiatal hernia 09/27/2015 Diarrhea 09/27/2015 Surgical History Surgery Date Site/Laterality Comments TOTAL ABDOMINAL HYSTERECTOMY 03/01/2010 - 02/28/2011 HIATAL HERNIA REPAIR 03/01/2015 - 02/29/2016 T[place]et fundoplication, cholecystectomy COLONOSCOPY Medical History Medical History Date Comments Hyperlipidemia Hypertension DM type 2 (diabetes mellitus, type 2) (HCC) dx 2006 GERD (gastroesophageal reflux disease) ADIA (obstructive sleep apnea) Family History Medical History Relation Name Comments Cancer Father Family history of malignant neoplasm - (Added by TW Conv) Coronary artery disease Father Roel nary artery disease; Hypertension Father Family history of hypertension - (Added by TW Conv) Cancer Mother Family history of malignant neoplasm - (Added by TW Conv) Coronary artery disease Mother Roel nary artery disease; Hypertension Mother Family history of hypertension - (Added by TW Conv) Colon cancer Sister Diabetes type II Sister Diabetes me llitus type 2; Relation Name Status Comments Father Mother Sister Social History Tobacco Use Types Packs/Day Years Used Date Smoking Tobacco: Never Alcohol Use Standard Drinks/Week Comments No 0 (1 standard drink = 0.6 oz pur e alcohol) Personal Safety Answer Date Recorded Getting School Help Needed Not on file 05/15 Comments Unknown Sex and Gender Information Value Date Recorded Sex Assigned at Not on file Legal Sex Female 3:33 AM CLAIM CLERK Gender Identity Not on file Sexual Orientation Not on file Obstetrics History Last Filed Vital Signs Vital Sign Reading Time Taken Comments Blood Pressure 116/76 02/08/2020 7:50 AM CLAIM CLERK Pulse 83 02/08/2020 7:50 AM CLAIM CLERK Temperature 36.1 C (97 F) 02/08/2020 7:27 AM CLAIM CLERK Respiratory Rate 20 02/08/2020 7:50 AM CLAIM CLERK Oxygen Saturation 94% 02/08/2020 7:50 AM CLAIM CLERK Inhaled Oxygen Concentration - - Weight 72.2 kg (159 lb 3.2 oz) 01/16/2020 10:46 AM CLAIM CLERK Height 165.1 cm (5' 5 ) 01/16/2020 10:46 AM CLAIM CLERK Body Mass Index 26.49 01/16/2020 10:46 AM CLAIM CLERK Plan of Treatment Not on file Insurance [facility] Advance Directives For more information, please contact: [phone] * Full Code (Latest Code Status on File) Date Activated Date Inactivated Comments 02/08/2020 6:22 AM 02/08/2020 12:23 PM Care Teams Hard Tile Setter Apprentice Relationship Specialty Start Date End Date John Quiroga MD PCP - General 01/01/17
== END 2024-07-06 12:22 | disposition home or self-care (01) ==
LOC: CHSIMG 12:23
PROVIDERS: PCP Internal Medicine; Visit Provider Nurse Practitioner Family
DX: Z78.0 Asymptomatic menopausal state (principal); M85.89 Other specified disorders of bone density and structure, multiple sites
CPT/HCPCS: 77080

== ENCOUNTER 2024-07-13 10:43 | Outpatient (CLI) | payer MEDICARE, SELFPAY ==
--- OUTSIDE RECORDS SUMMARY | 2024-07-13 10:47 | XMS_ITS | Referral Summary ---
Author Organization [facility] Address [address] [place] [address] Care Team Providers Care Demonstrator Knitting Name Role Phone John Quiroga MD Primary Care Provider [phone] Allergies Active Allergy Reactions Criticality Noted Date [...] on file Legal Sex Female 3:33 AM ROUGE MILLER Gender Identity Not on file Sexual Orientation Not on file Last Filed Vital Signs Vital Sign Reading Time Taken Comments Blood Pressure 116/76 02/08/2020 7:50 AM ROUGE MILLER Pulse 83 02/08/2020 7:50 AM ROUGE MILLER Temperature 36.1 C (97 F) 02/08/2020 7:27 AM ROUGE MILLER Respiratory Rate 20 02/08/2020 7:50 AM ROUGE MILLER Oxygen Saturation 94% 02/08/2020 7:50 AM ROUGE MILLER Inhaled Oxygen Concentration - - Weight 72.2 kg (159 lb 3.2 oz) 01/16/2020 10:46 AM ROUGE MILLER Height 165.1 cm (5' 5 ) 01/16/2020 10:46 AM ROUGE MILLER Body Mass Index 26.49 01/16/2020 10:46 AM ROUGE MILLER Plan of Treatment Not on file Insurance [facility] Address: [facility] [id number] [place] [id number] Advance Directives For more information, please contact: [phone] * Full Code (Latest Code Status on File) Date Activated Date Inactivated Comments 02/08/2020 6:22 AM 02/08/2020 12:23 PM Care Teams Demonstrator Knitting Relationship Specialty Start Date End Date John Quiroga MD PCP - General 01/01/17
--- OUTSIDE RECORDS SUMMARY | 2024-07-13 10:47 | XMS_ITS | Clinical Summary ---
Author Organization [facility] Address [address] [place] [address] Care Team Providers Care Deboning Team Leader Name Role Phone Unavailable Primary Care Provider [...]
--- OUTSIDE RECORDS SUMMARY | 2024-07-13 10:47 | XMS_ITS | Clinical Summary ---
Author Organization [facility] Address [address] [place] [address] Care Team Providers Care Farmworker Fur Name Role Phone John Quiroga MD Primary Care Provider [phone] Allergies Active Allergy Reactions Criticality Noted Date [...] on file Legal Sex Female 3:33 AM EDUCATION TEACHER Gender Identity Not on file Sexual Orientation Not on file Obstetrics History Last Filed Vital Signs Vital Sign Reading Time Taken Comments Blood Pressure 116/76 02/08/2020 7:50 AM EDUCATION TEACHER Pulse 83 02/08/2020 7:50 AM EDUCATION TEACHER Temperature 36.1 C (97 F) 02/08/2020 7:27 AM EDUCATION TEACHER Respiratory Rate 20 02/08/2020 7:50 AM EDUCATION TEACHER Oxygen Saturation 94% 02/08/2020 7:50 AM EDUCATION TEACHER Inhaled Oxygen Concentration - - Weight 72.2 kg (159 lb 3.2 oz) 01/16/2020 10:46 AM EDUCATION TEACHER Height 165.1 cm (5' 5 ) 01/16/2020 10:46 AM EDUCATION TEACHER Body Mass Index 26.49 01/16/2020 10:46 AM EDUCATION TEACHER Plan of Treatment Not on file Insurance [facility] MEDICARE Advance Directives For more information, please contact: [phone] * Full Code (Latest Code Status on File) Date Activated Date Inactivated Comments 02/08/2020 6:22 AM 02/08/2020 12:23 PM Care Teams Farmworker Fur Relationship Specialty Start Date End Date John Quiroga MD PCP - General 01/01/17
[2024-07-18 23:48] LABS: Pancreatic Elastase, Stool >800 mcg/g (>200)
== END 2024-07-13 10:44 | disposition home or self-care (01) ==
PROVIDERS: PCP Nurse Practitioner Family; Visit Provider Nurse Practitioner Family
DX: R19.5 Other fecal abnormalities (principal)
CPT/HCPCS: 82653

== ENCOUNTER 2024-12-12 09:01 | Outpatient (CLI) | payer MEDICARE, SELFPAY ==
[2024-12-12 09:21] LABS: Hematocrit 44.9 % (35.0-42.0); Hemoglobin 14.8 g/dL (11.7-13.8); Mean Corpuscular HGB Conc 33.0 g/dL (32-36); Mean Corpuscular Hemoglobin 30.1 pg (27.0-31.0); Mean Corpuscular Volume 91.3 fL (78.0-102.0); Platelet Count Result 260 K/mm3 (150-420); Red Blood Count 4.92 M/mm3 (4.20-5.40); White Blood Count 5.5 K/mm3 (4.8-10.8)
--- OUTSIDE RECORDS SUMMARY | 2024-12-12 09:49 | XMS_ITS | Clinical Summary ---
Author Organization [facility] Address [address] [place] [address] Care Team Providers Care Blow Torch Burner Name Role Phone John Quiroga MD Primary Care Provider [phone] Allergies Active Allergy Reactions Criticality Noted Date [...] DM type 2 (diabetes mellitus, type 2) dx 2006 GERD (gastroesophageal reflux disease) ADIA [...] on file Legal Sex Female 3:33 AM DRAWBENCH OPERATOR Gender Identity Not on file Sexual Orientation Not on file Obstetrics History Last Filed Vital Signs Vital Sign Reading Time Taken Comments Blood Pressure 116/76 02/08/2020 7:50 AM DRAWBENCH OPERATOR Pulse 83 02/08/2020 7:50 AM DRAWBENCH OPERATOR Temperature 36.1 C (97 F) 02/08/2020 7:27 AM DRAWBENCH OPERATOR Respiratory Rate 20 02/08/2020 7:50 AM DRAWBENCH OPERATOR Oxygen Saturation 94% 02/08/2020 7:50 AM DRAWBENCH OPERATOR Inhaled Oxygen Concentration - - Weight 72.2 kg (159 lb 3.2 oz) 01/16/2020 10:46 AM DRAWBENCH OPERATOR Height 165.1 cm (5' 5) 01/16/2020 10:46 AM DRAWBENCH OPERATOR Body Mass Index 26.49 01/16/2020 10:46 AM DRAWBENCH OPERATOR Plan of Treatment Not on file Insurance COUNT [facility] MEDIC[facility] Advance Directives For more information, please contact: [phone] * Full Code (Latest Code Status on File) Date Activated Date Inactivated Comments 02/08/2020 6:22 AM 02/08/2020 12:23 PM Care Teams Blow Torch Burner Relationship Specialty Start Date End Date John Quiroga MD PCP - General 01/01/17
[2024-12-12 11:54] LABS: Alanine Aminotransferase 32 U/L (6-35); Albumin Level 4.6 g/dL (3.5-5.1); Alkaline Phosphatase 85 U/L (38-126); Anion Gap 10 mmol/L (4-12); Aspartate Amino Transferase 32 U/L (14-36); Bilirubin,Total 2.7 mg/dL (0.2-1.3); Blood Urea Nitrogen 15 mg/dL (7-17); Calcium 9.9 mg/dL (8.4-10.2); Carbon Dioxide 27 mmol/L (22-30); Chloride 103 mmol/L (98-107); Estimated Glomerular Filt Rate > 60; Glucose 173 mg/dL (65-110); Osmolality Calculated 294 mOsm/kg (285-295); Potassium 4.1 mmol/L (3.4-5.0); Sodium 140 mmol/L (137-145); Total Protein 7.5 g/dL (6.3-8.2)
== END 2024-12-12 09:02 | disposition home or self-care (01) ==
LOC: CHSLAB 09:02
PROVIDERS: PCP Internal Medicine; Visit Provider Nurse Practitioner Family
DX: K76.0 Fatty (change of) liver, not elsewhere classified (principal)
CPT/HCPCS: 36415; 80053; 85027

== ENCOUNTER 2024-12-22 07:53 | Outpatient (CLI) | payer MEDICARE, SELFPAY ==
--- NOTE | ~2024-12-22 | US_ITS ---
US abdomen limited Indication: K76.0 - Fatty (change of) liver, not elsewhere classified Comparison: Comparison 11/09/2023. Technique: Yates-scale and color Doppler images were obtained. Findings: LIVER: Mild increased echogenicity of the liver. . GALLBLADDER/BILIARY: Post cholecystectomy. CBD 4 mm. [place] sign negative. PANCREAS: Unremarkable. Right Kidney: The right kidney was not imaged. Impression: Mild hepatic steatosis Reviewed, dictated and finalized at location P. Impression: Mild hepatic steatosis
--- OUTSIDE RECORDS SUMMARY | 2024-12-22 07:56 | XMS_ITS | Clinical Summary ---
Author Organization [facility] Address [address] [place] [address] Care Team Providers Care Glazing Superintendent Name Role Phone Unavailable Primary Care Provider [...] COVID-19 Vaccine ( - 2023-2 5 season) 2024 Influenza Adult (#1) 2024 RSV Immunization or 60+ Years (1 - [...]
== END 2024-12-22 07:54 | disposition home or self-care (01) ==
LOC: CHSIMG 07:54
PROVIDERS: PCP Internal Medicine; Visit Provider Nurse Practitioner Family
DX: K76.0 Fatty (change of) liver, not elsewhere classified (principal); E80.6 Other disorders of bilirubin metabolism; Z80.0 Family history of malignant neoplasm of digestive organs
CPT/HCPCS: 76705